=== PATIENT | male | born 1955 | race Caucasian/White ===

== ENCOUNTER 2018-09-29 09:21 | Emergency (ER) | payer OTHER ==
[~2018-09-29] VITALS: Ht 175.3 cm; Wt 95.0 kg
[2018-09-29] MEDS ORDERED: KEPPSOL GT (09:27)
[2018-09-29] MEDS ORDERED: IBUPROFEN 600MG TABLET PO STA (09:36)
[2018-09-29 09:51] LABS: BASOPHILS % 0.8 % (0.0-2.0); EOSINOPHILS % 4.4 % (0.0-5.0); HEMOGLOBIN. 14.3 g/dL (14.0-18.0); MEAN CORPUSCULAR HEMOGLOBIN 30.1 pg (28.0-32.0); MEAN CORPUSCULAR VOLUME 90.6 fL (80.0-94.0); MEAN PLATELET VOLUME 9.1 fl (7.4-10.4); MONOCYTES % 12.1 % (2.0-8.0); NEUTROPHILS % 64.7 % (40.0-76.0); PLATELET 225 x1000/uL (130-400); RED BLOOD CELL COUNT 4.75 mill/uL (4.7-6.1); RED CELL DISTRIBUTION WIDTH 13.4 % (11.6-14.6)
[2018-09-29 09:58] LABS: CHLORIDE 107 mEq/L (98-107)
[2018-09-30 15:00] VITALS: BP 125/76
== END 2018-09-30 15:45 | disposition home or self-care (01) ==
LOC: ER 10:07
DX: R07.89 Other chest pain (principal); I10 Essential (primary) hypertension; G40.909 Epilepsy, unspecified, not intractable, without status epilepticus; F99 Mental disorder, not otherwise specified
CPT/HCPCS: 36415; 71045; 83880; 84484; 93005; 99284